=== PATIENT | female | born 1940 | race Caucasian/White ===

== ENCOUNTER 2017-03-04 10:03 | Inpatient (IN) ==
[2017-03-04 11:14] LABS: Basophils # 0.1 10*3/uL (0.0-0.2); Basophils % 0.5 % (0.0-0.8); Eosinophils # 0.5 10*3/uL (0.0-0.87); Eosinophils % 4.6 % (0.00-10.9); Hemoglobin 14.5 GM/DL (12.0-16.0); Immature Granulocytes % 0.4 %; Immature Granulocytes Absolute 0.04 #; Lymphocytes # 2.3 10*3/uL (1.4-4.0); Lymphocytes % 19.7 % (21.3-54.2); Mean Corpuscular HGB Conc 33.7 GM/DL (32-36); Mean Corpuscular Hemoglobin 34 PG (27-34); Mean Corpuscular Volume 99.8 FL (87-102); Mean Platelet Volume 10.6 FL (9.6-12.0); Monocytes # 0.9 10*3/uL (0.11-0.8); Monocytes % 7.9 % (1.7-12.7); Neutrophils # 7.6 10*3/uL (1.4-7.4); Neutrophils % 66.9 % (38.7-73.9); Platelet Count 251 T/CUMM (130-400); Red Blood Count 4.31 MC/CUMM (3.8-5.5); Red Cell Distribution Width 13.6 % (9.3-17.3); White Blood Count 11.4 T/CUMM (4-12)
[2017-03-04 11:30] LABS: Albumin 3.8 G/DL (3.4-5.0); Bilirubin,Direct 0.26 MG/DL (0.0-0.20); Bilirubin,Indirect 0.6 MG/DL (0.0-1.0); Bilirubin,Total 0.9 MG/DL (0.2-1.0); Calcium 10.4 MG/DL (8.5-10.1); Osmolality,Calculated 284.3 MOS/KG (273-304); Potassium 4.2 MMOL/L (3.5-5.1); Total Protein 7.3 G/DL (6.4-8.3)
[2017-03-04 11:47] LABS: Amorphous Crystals,Urine Moderate /HPF (Few); Apearance,Urine CLOUDY (Clear); Bacteria,Urine Few /HPF (Few); Bilirubin,Urine Negative (Negative); Blood, Urine Moderate mg/dL (Negative); Calcium Oxalate Crystals,Urine Few /HPF (Few); Glucose,Urine (UA) Negative (Negative); Hyaline Casts,Urine 7 /LPF (0-3); Ketones,Urine Negative (Negative); Mucus,Urine Occasional /LPF (Occasional); Nitrite,Urine Negative (Negative); Protein,Urine 30 MG/DL; RBC,Urine 140 /HPF (0-4); Squamous Epithelial Cell,Urine Occasional /HPF (0-10); Urine Color Yellow (Yellow); Urine Specific Gravity 1.012 (1.001-1.035); Urine Urobilinogen < 2.0 EU/DL (0.2-1.0); WBC,Urine 84 /HPF (0-6)
[2017-03-04] MEDS ORDERED: LEVOFLOXACIN INJ 750 MG in PREMIX 1 EACH IV STA (13:11)
[2017-03-04] MEDS ORDERED: ACETAMINOPHEN 325 MG TABLET PO PRN (13:40)
[2017-03-04] MEDS ORDERED: ONDANSETRON 4 MG/2 ML VIAL IV PRN (13:40)
[2017-03-04] MEDS ORDERED: MORPHINE 2 MG/1 ML SYRINGE IV PRN (13:40)
[2017-03-04] MEDS ORDERED: LEVOFLOXACIN INJ 150 ML IV ONE (13:59)
[2017-03-04] MEDS: AMPICILLIN/SULBACTAM 1,500 MG in SODIUM CHLORIDE 0.9% 50 ML IV SCH (17:54)
[2017-03-04] MEDS: PANTOPRAZOLE 40 MG VIAL IV SCH (20:18)
[2017-03-04] MEDS: ATORVASTATIN 40 MG TABLET PO SCH (20:18)
[2017-03-04 21:36] LABS: Hematocrit 39.9 VOL% (35.7-47.0); Hemoglobin 13.2 GM/DL (12.0-16.0)
[2017-03-05] MEDS: AMPICILLIN/SULBACTAM 1,500 MG in SODIUM CHLORIDE 0.9% 50 ML IV SCH ×2 (04:01→17:04)
[2017-03-05 05:35] LABS: Basophils % 0.5 % (0.0-0.8); Eosinophils # 0.3 10*3/uL (0.0-0.87); Eosinophils % 4.2 % (0.00-10.9); Hematocrit 40.2 VOL% (35.7-47.0); Hemoglobin 13.2 GM/DL (12.0-16.0); Immature Granulocytes % 0.4 %; Immature Granulocytes Absolute 0.03 #; Lymphocytes # 2.1 10*3/uL (1.4-4.0); Lymphocytes % 25.8 % (21.3-54.2); Mean Corpuscular HGB Conc 32.8 GM/DL (32-36); Mean Corpuscular Hemoglobin 32 PG (27-34); Mean Corpuscular Volume 98.8 FL (87-102); Mean Platelet Volume 10.3 FL (9.6-12.0); Monocytes # 0.9 10*3/uL (0.11-0.8); Monocytes % 10.9 % (1.7-12.7); Neutrophils # 4.7 10*3/uL (1.4-7.4); Neutrophils % 58.2 % (38.7-73.9); Platelet Count 259 T/CUMM (130-400); Red Blood Count 4.07 MC/CUMM (3.8-5.5); Red Cell Distribution Width 13.7 % (9.3-17.3)
[2017-03-05 06:13] LABS: Calcium 9.9 MG/DL (8.5-10.1); Magnesium 2.1 MG/DL (1.8-2.4); Osmolality,Calculated 284.1 MOS/KG (273-304); Potassium 3.8 MMOL/L (3.5-5.1); Thyroid Stimulating Hormone 6.73 uIU/ml (0.358-3.74)
[2017-03-05] MEDS ORDERED: LEVOTHYROXINE 50 MCG TABLET PO SCH (07:00)
[2017-03-05] MEDS: POTASSIUM CHLORIDE 20 MEQ TABLET PO SCH (09:16)
[2017-03-05] MEDS: LISINOPRIL 5 MG TABLET PO SCH (09:16)
[2017-03-05] MEDS: SERTRALINE 50 MG TABLET PO SCH (09:16)
[2017-03-05] MEDS: MULTIVITAMIN (CENTRUM) TABLET PO SCH (09:16)
[2017-03-05] MEDS: FUROSEMIDE 20 MG TABLET PO SCH (09:16)
[2017-03-05] MEDS: PANTOPRAZOLE 40 MG VIAL IV SCH ×2 (09:18→21:16)
[2017-03-05] MEDS: MAGNESIUM GLUCONATE 500 MG TABLET PO SCH (09:20)
[2017-03-05 10:20] LABS: Hematocrit 40.4 VOL% (35.7-47.0); Hemoglobin 13.5 GM/DL (12.0-16.0)
[2017-03-05] MEDS ORDERED: LEVOFLOXACIN INJ 750 MG in PREMIX 1 EACH IV SCH (13:00)
[2017-03-05] MEDS: ATORVASTATIN 40 MG TABLET PO SCH (21:16)
[2017-03-06] MEDS: AMPICILLIN/SULBACTAM 1,500 MG in SODIUM CHLORIDE 0.9% 50 ML IV SCH (04:34)
[2017-03-06] MEDS ORDERED: LEVOTHYROXINE 75 MCG TABLET PO SCH (06:30)
[2017-03-06] MEDS: PANTOPRAZOLE 40 MG VIAL IV SCH (08:40)
[2017-03-06] MEDS: MULTIVITAMIN (CENTRUM) TABLET PO SCH (10:51)
[2017-03-06] MEDS: FUROSEMIDE 20 MG TABLET PO SCH (10:52)
[2017-03-06] MEDS: LISINOPRIL 5 MG TABLET PO SCH (10:52)
[2017-03-06] MEDS: MAGNESIUM GLUCONATE 500 MG TABLET PO SCH (10:52)
[2017-03-06] MEDS: POTASSIUM CHLORIDE 20 MEQ TABLET PO SCH (10:52)
[2017-03-06] MEDS: SERTRALINE 50 MG TABLET PO SCH (10:52)
[2017-03-06] MEDS ORDERED: PROPOFOL 200 MG/20 ML VIAL IV ONE (11:29)
[2017-03-06] MEDS ORDERED: LIDOCAINE 2% 5 ML VIAL ONE (11:29)
[2017-03-06 13:20] VITALS: BP 131/62
== END 2017-03-06 15:50 | disposition home or self-care (01) | DRG 378 ==
LOC: EDUNIT# → N.ED 10:03 → SUATTDRO 13:01 → N.EDINP 13:01 → N.4E 15:04
PROVIDERS: ADMIT Internal Medicine Infectious Disease; ATTEND Internal Medicine Cardiovascular Disease

== ENCOUNTER 2018-05-07 11:37 | Inpatient (IN) ==
[2018-05-07 13:50] LABS: Basophils % 0.2 % (0.0-0.8); Eosinophils # 0.1 10*3/uL (0.0-0.87); Eosinophils % 0.7 % (0.00-10.9); Hematocrit 47.8 VOL% (35.7-47.0); Hemoglobin 14.9 GM/DL (12.0-16.0); Immature Granulocytes % 0.7 %; Immature Granulocytes Absolute 0.13 #; Lymphocytes # 1.2 10*3/uL (1.4-4.0); Lymphocytes % 6.7 % (21.3-54.2); Mean Corpuscular HGB Conc 31.2 GM/DL (32-36); Mean Corpuscular Hemoglobin 28 PG (27-34); Mean Corpuscular Volume 88.5 FL (87-102); Monocytes # 1.1 10*3/uL (0.11-0.8); Neutrophils % 85.7 % (38.7-73.9); Platelet Count 248 T/CUMM (130-400); Red Cell Distribution Width 15.4 % (9.3-17.3); White Blood Count 17.5 T/CUMM (4-12)
[2018-05-07 14:03] LABS: Calcium 9.6 MG/DL (8.5-10.1); Osmolality,Calculated 293.6 MOS/KG (273-304)
[2018-05-07] MEDS ORDERED: hydrALAZINE 20 MG/1 ML VIAL IV PRN (14:15)
[2018-05-07] MEDS ORDERED: ALBUTEROL/IPRATROPIUM 3 ML NEB RESP TX PRN (14:40)
[2018-05-07] MEDS: SODIUM CHLORIDE 0.9% 1,000 ML IV SCH ×2 (15:01→19:48)
[2018-05-07] MEDS ORDERED: INFLUENZA VIRUS VACCINE 0.5 ML SYRINGE IM ONE (15:04)
[2018-05-07] MEDS ORDERED: cefTRIAXone 2,000 MG in SYRINGE 1 EACH IV SCH (16:30)
[2018-05-07] MEDS: ONDANSETRON 4 MG/2 ML VIAL IV PRN (18:38)
[2018-05-07 19:48] LABS: Apearance,Urine CLOUDY (Clear); Bilirubin,Urine Negative (Negative); Blood, Urine Negative (Negative); Glucose,Urine (UA) Negative (Negative); Ketones,Urine Negative (Negative); Mucus,Urine Occasional /LPF (Occasional); Nitrite,Urine Negative (Negative); Protein,Urine 100 MG/DL; RBC,Urine 24 /HPF (0-4); Urine Color Yellow (Yellow); Urine Specific Gravity 1.016 (1.001-1.035); Urine Urobilinogen < 2.0 EU/DL (0.2-1.0); WBC,Urine 1261 /HPF (0-6)
[2018-05-07] MEDS: PANTOPRAZOLE 40 MG VIAL IV SCH (22:06)
[2018-05-07] MEDS: DONEPEZIL 5 MG TABLET PO SCH (22:07)
[2018-05-07] MEDS: PREGABALIN 100 MG CAPSULE PO SCH (22:07)
[2018-05-07] MEDS: POTASSIUM CHLORIDE RIDER 10 MEQ in PREMIX 1 EACH IV PRN ×2 (22:14→23:11)
[2018-05-08] MEDS: POTASSIUM CHLORIDE RIDER 10 MEQ in PREMIX 1 EACH IV PRN ×3 (00:10→02:35)
[2018-05-08 05:10] LABS: Calcium 8.3 MG/DL (8.5-10.1); Osmolality,Calculated 280.4 MOS/KG (273-304); Potassium 4.4 MMOL/L (3.5-5.1)
[2018-05-08 05:16] LABS: Basophils % 0.2 % (0.0-0.8); Eosinophils # 0.6 10*3/uL (0.0-0.87); Eosinophils % 3.1 % (0.00-10.9); Hematocrit 40.2 VOL% (35.7-47.0); Hemoglobin 12.2 GM/DL (12.0-16.0); Immature Granulocytes % 0.6 %; Immature Granulocytes Absolute 0.11 #; Lymphocytes # 2.2 10*3/uL (1.4-4.0); Mean Corpuscular HGB Conc 30.3 GM/DL (32-36); Mean Corpuscular Hemoglobin 28 PG (27-34); Mean Corpuscular Volume 90.7 FL (87-102); Mean Platelet Volume 11.1 FL (9.6-12.0); Monocytes # 1.1 10*3/uL (0.11-0.8); Monocytes % 6.3 % (1.7-12.7); Neutrophils # 14.1 10*3/uL (1.4-7.4); Neutrophils % 77.8 % (38.7-73.9); Platelet Count 210 T/CUMM (130-400); Red Blood Count 4.43 MC/CUMM (3.8-5.5); Red Cell Distribution Width 15.2 % (9.3-17.3); White Blood Count 18.1 T/CUMM (4-12)
[2018-05-08] MEDS: LEVOTHYROXINE 50 MCG TABLET PO SCH (07:01)
[2018-05-08] MEDS ORDERED: ERTAPENEM 1,000 MG in SODIUM CHLORIDE 0.9% 100 ML IV SCH (09:00)
[2018-05-08] MEDS: PREGABALIN 100 MG CAPSULE PO SCH ×2 (09:04→21:45)
[2018-05-08] MEDS: ASPIRIN EC 81 MG TABLET PO SCH (09:04)
[2018-05-08] MEDS: POTASSIUM CHLORIDE 20 MEQ TABLET PO SCH (09:04)
[2018-05-08] MEDS: PANTOPRAZOLE 40 MG VIAL IV SCH ×2 (09:05→21:46)
[2018-05-08] MEDS: SODIUM CHLORIDE 0.9% 1,000 ML IV SCH ×3 (09:09→21:42)
[2018-05-08] MEDS: MEROPENEM 1,000 MG in SODIUM CHLORIDE 0.9% 100 ML IV SCH ×2 (09:09→21:43)
[2018-05-08] MEDS: DOXYCYCLINE HYCLATE 100 MG CAPSULE PO SCH ×2 (15:20→21:45)
[2018-05-08] MEDS: DONEPEZIL 5 MG TABLET PO SCH (21:45)
[2018-05-09] MEDS: LEVOTHYROXINE 50 MCG TABLET PO SCH (06:00)
[2018-05-09 06:08] LABS: Basophils % 0.2 % (0.0-0.8); Eosinophils # 0.8 10*3/uL (0.0-0.87); Hematocrit 35.6 VOL% (35.7-47.0); Hemoglobin 10.7 GM/DL (12.0-16.0); Immature Granulocytes % 0.5 %; Immature Granulocytes Absolute 0.06 #; Lymphocytes # 1.5 10*3/uL (1.4-4.0); Lymphocytes % 13.1 % (21.3-54.2); Mean Corpuscular HGB Conc 30.1 GM/DL (32-36); Mean Corpuscular Hemoglobin 28 PG (27-34); Mean Corpuscular Volume 93.2 FL (87-102); Mean Platelet Volume 10.5 FL (9.6-12.0); Monocytes # 0.9 10*3/uL (0.11-0.8); Monocytes % 7.8 % (1.7-12.7); Neutrophils # 8.4 10*3/uL (1.4-7.4); Neutrophils % 71.4 % (38.7-73.9); Platelet Count 172 T/CUMM (130-400); Red Blood Count 3.82 MC/CUMM (3.8-5.5); White Blood Count 11.7 T/CUMM (4-12)
[2018-05-09 06:42] LABS: % Iron Saturation 18.6 % (18-50); Ferritin 52.1 ng/ml (8-252)
[2018-05-09 06:50] LABS: Folate 6.9 NG/ML (5.4-24.0); Vitamin B12 218 PG/ML (211-911)
[2018-05-09 07:22] LABS: Sedimentation Rate-Westergren 13 MM/HR (0-30)
[2018-05-09] MEDS: SODIUM CHLORIDE 0.9% 1,000 ML IV SCH ×3 (08:45→20:25)
[2018-05-09] MEDS: PANTOPRAZOLE 40 MG VIAL IV SCH ×2 (08:45→20:24)
[2018-05-09] MEDS: PREGABALIN 100 MG CAPSULE PO SCH ×2 (08:46→20:24)
[2018-05-09] MEDS: DOXYCYCLINE HYCLATE 100 MG CAPSULE PO SCH ×2 (08:46→20:25)
[2018-05-09] MEDS: ASPIRIN EC 81 MG TABLET PO SCH (08:46)
[2018-05-09] MEDS: POTASSIUM CHLORIDE 20 MEQ TABLET PO SCH (08:46)
[2018-05-09] MEDS: MEROPENEM 1,000 MG in SODIUM CHLORIDE 0.9% 100 ML IV SCH ×2 (08:49→20:28)
[2018-05-09 09:47] LABS: Hemoglobin A1 (Alkaline) 97.6 % (96.5-98.5)
[2018-05-09 09:48] LABS: Hemoglobin A2 (Alkaline) 2.4 % (1.5-3.5)
[2018-05-09] MEDS: MORPHINE 4 MG/1 ML VIAL IV PRN (18:05)
[2018-05-09] MEDS: DONEPEZIL 5 MG TABLET PO SCH (20:24)
[2018-05-10] MEDS: ONDANSETRON 4 MG/2 ML VIAL IV PRN (02:09)
[2018-05-10] MEDS: SODIUM CHLORIDE 0.9% 1,000 ML IV SCH (06:18)
[2018-05-10] MEDS: LEVOTHYROXINE 50 MCG TABLET PO SCH (06:19)
[2018-05-10] MEDS ORDERED: CYANOCOBALAMIN 1000 MCG/1 ML VIAL IM ONE (08:45)
[2018-05-10] MEDS: MEROPENEM 1,000 MG in SODIUM CHLORIDE 0.9% 100 ML IV SCH ×2 (09:51→21:13)
[2018-05-10] MEDS: CHOLECALCIFEROL 1,000 UNIT TABLET PO SCH (09:53)
[2018-05-10] MEDS: DOXYCYCLINE HYCLATE 100 MG CAPSULE PO SCH ×2 (09:53→21:14)
[2018-05-10] MEDS: PREGABALIN 100 MG CAPSULE PO SCH ×2 (09:53→21:14)
[2018-05-10] MEDS: FOLIC ACID 1 MG TABLET PO SCH (09:53)
[2018-05-10] MEDS: PANTOPRAZOLE 40 MG TABLET PO SCH (09:54)
[2018-05-10] MEDS: LISINOPRIL 10 MG TABLET PO SCH (09:54)
[2018-05-10] MEDS: ASPIRIN EC 81 MG TABLET PO SCH (09:54)
[2018-05-10] MEDS: CYANOCOBALAMIN 500 MCG TABLET PO SCH (09:54)
[2018-05-10] MEDS: MORPHINE 4 MG/1 ML VIAL IV PRN ×2 (11:32→21:51)
[2018-05-10] MEDS: DONEPEZIL 5 MG TABLET PO SCH (21:13)
[2018-05-11] MEDS: LEVOTHYROXINE 50 MCG TABLET PO SCH (06:09)
[2018-05-11] MEDS: CHOLECALCIFEROL 1,000 UNIT TABLET PO SCH (08:26)
[2018-05-11] MEDS: FOLIC ACID 1 MG TABLET PO SCH (08:26)
[2018-05-11] MEDS: ASPIRIN EC 81 MG TABLET PO SCH (08:26)
[2018-05-11] MEDS: DOXYCYCLINE HYCLATE 100 MG CAPSULE PO SCH (08:26)
[2018-05-11] MEDS: PANTOPRAZOLE 40 MG TABLET PO SCH (08:26)
[2018-05-11] MEDS: PREGABALIN 100 MG CAPSULE PO SCH (08:26)
[2018-05-11] MEDS: MEROPENEM 1,000 MG in SODIUM CHLORIDE 0.9% 100 ML IV SCH (08:26)
[2018-05-11] MEDS: LISINOPRIL 10 MG TABLET PO SCH (08:26)
[2018-05-11] MEDS: CYANOCOBALAMIN 500 MCG TABLET PO SCH (08:30)
[2018-05-11] MEDS ORDERED: INFLUENZA VIRUS VACCINE 0.5 ML SYRINGE IM ONE (10:01)
[2018-05-11 12:40] VITALS: BP 112/56
[2018-05-11] MEDS ORDERED: CEFDINIR 300 MG CAPSULE PO SCH (21:00)
== END 2018-05-11 13:45 | disposition home health service (06) | DRG 388 ==
LOC: EDUNIT# → EDBD → N.EDINP 11:37 → N.ED 11:37 → N.5E 13:29
PROVIDERS: ADMIT Hospitalist; ATTEND Hospitalist